=== PATIENT | male | born 1980 | race Caucasian/White ===

== ENCOUNTER 2017-10-11 20:00 | Emergency (ER) | payer SELFPAY, OTHER ==
[2017-10-11] MEDS: IBUPROFEN 800 MG TAB PO (22:23)
== END 2017-10-12 00:18 | disposition home or self-care (01) ==
LOC: FTE 10-12 00:18
DX: S62.335A Displaced fracture of neck of fourth metacarpal bone, left hand, initial encounter for closed fracture (principal); Y08.89XA Assault by other specified means, initial encounter; Y92.89 Other specified places as the place of occurrence of the external cause
CPT/HCPCS: 29125; 73130-RT; 99283-25